=== PATIENT | female | born 1995 | race Caucasian/White ===

== ENCOUNTER 2016-10-05 20:50 | Emergency (ER) | payer OTHER ==
[~2016-10-05 20:50] MED LIST: ALBUTEROL 0.5ML INH; ALBUTEROL17 GM INH; AUGMENTIN; AUGMENTIN PO; BACTRIM DS TABL1 TA1 PO; BIRTH CONTROL PILL PO; CLARITIN D; LORATADINE PO; MOTRIN600 M1 PO; OTC COLD MED; PREDNISONE PO; PROMETHAZINE D118 ML PO; TESSALON PERLES PO; ZANTAC PO; ZITHROMAX1 G/PKT PO; ZYRTEC PO
[2016-10-05 20:56] LABS: INFLUENZA A NEG (NEG); INFLUENZA B NEG (NEG)
[2016-10-05] MEDS ORDERED: AMOXICILLIN875 MG PO (21:14)
[2016-10-05] MEDS ORDERED: ZYRTEC5 M1 PO (21:15)
== END 2016-10-05 21:15 | disposition home or self-care (01) ==
LOC: SED 20:50
PROVIDERS: Emergency Medicine
DX: J01.90 Acute sinusitis, unspecified (principal); Z98.890 Other specified postprocedural states; Z88.8 Allergy status to other drugs, medicaments and biological substances
CPT/HCPCS: 87804; 99283

== ENCOUNTER 2017-02-11 11:37 | Emergency (ER) | payer OTHER ==
--- NOTE | ~2017-02-11 | US134 ---
[facility] A Service of [facility] RADIOLOGY TEXT RESULTS PATIENT: JUAN ALBERTO JI LOCATION: SED : [birth year] UNIT #: [id number] AGE: [address]: Anahi Bernal SEX: F ORDER DR: [id number] [address] [address] [id number] E MR#: [id number] Acc #: [id number] NAME: JUAN ALBERTO JI : 1995 SEX: F STUDY DATE/TIME: 02/11/2017 12:36 UNIT: SED ROOM: STUDY DESCRIPTION: US Transvaginal Attending Physician: Anahi Bernal Pa-C Ordering Physician: Physician Non-Staff [facility] REPORT This report is preliminary unless electronic signature is present. EXAM Ultrasound transvaginal HISTORY Irregular bleeding for 1 day. Pelvic pain x1 day. Last menstrual period 02/02/2017, beta HCG negative. G0, P0. FINDINGS Pelvic ultrasound performed with transvaginal but not transabdominal imaging. Study limited in the absence of transabdominal images. Uterus measures 8.35 cm x 4.17 cm x 5.81 cm. Myometrium unremarkable. Endometrial echo complex measures 4.6 mm in thickness. Normal value. Question trace fluid in the endometrial canal and cervical canal. If present, this is minimal. There may be a trace amount of free fluid adjacent to the uterine fundus. No drainable fluid collection is suggested. The right ovary demonstrates arterial and venous flow. It measures 2.31 cm x 2.11 cm x 2.45 cm. Small follicular ovarian cysts are seen. Left ovary not identified. IMPRESSION 1. Uterine myometrium normal. 2. Endometrial echo complex normal in thickness at 4.6 mm. Question trace fluid in the endometrial canal and cervical canal. Questionable finding. 3. Small amount of free fluid adjacent to the uterine fundus. Not a drainable fluid collection. 4. Left ovary not visualized. Right ovary unremarkable. Vascular flow demonstrated. No suspicious adnexal structures. Dictated by... Domo Granados M.D. [facility] A Service of [facility] RADIOLOGY TEXT RESULTS PATIENT: JUAN ALBERTO JI LOCATION: SED : [birth year] UNIT #: [id number] AGE: [address]: Anahi Bernal SEX: F ORDER DR: THIS IS AN ELECTRONICALLY VERIFIED REPORT Domo Granados M.D. at 02/13/2017 6:14 PM Francois TD: 02/11/2017 22:49 JOB #: [id number] MEDICAL IMAGING REPORT Page 1 of 1
[~2017-02-11 11:37] MED LIST changes: +AMOXICILLIN875 MG PO; +ZYRTEC5 M1 PO
[2017-02-11 11:54] LABS: URINE APPEARANCE SL CLOUDY; URINE BILIRUBIN NEG (NEG); URINE BLOOD 3+ (NEG); URINE COLOR ORANGE; URINE GLUCOSE NEG (NORM); URINE KETONE NEG (NEG); URINE LEUKOCYTE ESTERASE TRACE (NEG); URINE NITRATE NEG (NEG); URINE PROTEIN TRACE (NEG); URINE SOURCE CLEAN CATCH; URINE SPECIFIC GRAVITY 1.025 (1.003-1.035); URINE UROBILINOGEN 0.2 MG/DL (NORM)
[2017-02-11 11:57] LABS: MICRO INDICATED? YES
[2017-02-11 11:59] LABS: URINE BACTERIA NEG (NEG); URINE RBC 50-100 /[HPF] (0-2); URINE SQUAMOUS EPITHELIAL CELL FEW /[HPF]; URINE WBC 0-2 /[HPF] (0-5)
[2017-02-12 22:53] LABS: CHLAMYDIA TRACH Not Detected (Not Detected); N GONOR Not Detected (Not Detected)
== END 2017-02-11 14:03 | disposition home or self-care (01) ==
LOC: SED 11:37
PROVIDERS: Physician Assistant
DX: N93.9 Abnormal uterine and vaginal bleeding, unspecified (principal)
CPT/HCPCS: 76830; 81003; 84703; 87210; 87491; 87591; 87808; 87905; 99284